=== PATIENT | male | born 1935 ===

== ENCOUNTER 2017-09-01 16:35 | Emergency (ER) | payer MEDICARE ==
[~2017-09-01] VITALS: Ht 185.4 cm; Wt 80.3 kg
[~2017-09-01 16:35] MED LIST: AMLO5 PO; Zofran Odt4 MG SL
== END 2017-09-01 20:25 | disposition home or self-care (01) ==
LOC: ER 16:35
DX: T18.128A Food in esophagus causing other injury, initial encounter (principal); Z88.0 Allergy status to penicillin; Z79.899 Other long term (current) drug therapy; I10 Essential (primary) hypertension; F17.210 Nicotine dependence, cigarettes, uncomplicated
CPT/HCPCS: 99283

== ENCOUNTER → 2018-06-29 | Outpatient (CLI) | payer MEDICARE ==
[~2018-06-29] MED LIST changes: +CLON2
== END | disposition home or self-care (01) ==
LOC: LAB SHORT 09:56 → PLD 09:56
DX: D48.5 Neoplasm of uncertain behavior of skin (principal)
CPT/HCPCS: 88305